=== PATIENT | male | born 1965 | race Caucasian/White ===

== ENCOUNTER 2021-06-10 08:21 | Emergency (ER) | payer OTHER ==
[~2021-06-10 08:21] MED LIST: KEPPRA500 MG PO
[2021-06-10 09:36] LABS: BASOPHIL 0.9 % (0-2); EOSINOPHIL 1.3 % (0-5); HGB 9.9 g/dl (13.2-18.0); MCH 30.9 pg (25.0-31.0); MCV 93.8 fL (78.0-100.0); MONOCYTE 11.2 % (0-12); MPV 10.3 fL (6.0-9.5); NEUTROPHIL 68.4 % (41-80); NRBC 0; PLT 111 K/uL (150-400); WBC 4.6 K/uL (4.0-10.5)
[2021-06-10 09:41] LABS: INR 1.79 (0.9-1.2); PTT 39.4 SECONDS (24.4-34.7)
[2021-06-10 09:50] LABS: BILIRUBIN - TOTAL 4.4 mg/dL (0.2-1.0); BUN/CREAT RATIO (CALC) 14.5 RATIO; CREATININE 0.69 mg/dL (0.67-1.17); GLOBULIN (CALCULATION) 2.7 g/dL; MAGNESIUM 1.5 mg/dL (1.8-2.4); POTASSIUM 3.4 mmol/L (3.5-5.1); TOTAL PROTEIN 4.7 g/dL (6.4-8.2)
[2021-06-10] MEDS ORDERED: LASIX20 MG PO (15:02)
[2021-06-10] MEDS ORDERED: ALDACTONE25 M1 PO (15:02)
[2021-06-11] MEDS ORDERED: MACROBID100 MG PO (12:43)
[2021-06-11] MEDS ORDERED: OXY-IR 5MG5 MG PO (12:43)
[2021-06-11] MEDS ORDERED: ONDANSETRON ODT4 MG PO (12:43)
== END 2021-06-10 15:20 | disposition home or self-care (01) ==
LOC: FER 08:21
PROVIDERS: Emergency Medicine
DX: R07.89 Other chest pain (principal); R18.8 Other ascites; F17.210 Nicotine dependence, cigarettes, uncomplicated
CPT/HCPCS: 36415; 80053; 83690; 83735; 84484; 85025; 85610; 85730; 93005; 96374; 96375; 96376; J1170; J2060; J2405; P9046

== ENCOUNTER 2021-06-11 08:51 | Emergency (ER) | payer OTHER ==
[~2021-06-11 08:51] MED LIST changes: +ALDACTONE25 M1 PO; +LASIX20 MG PO
[2021-06-11 10:43] LABS: BILIRUBIN 2+ mg/dL (NEGATIVE); BLOOD 3+ Ery/uL (NEGATIVE); CLARITY CLEAR (CLEAR); COLOR ORANGE (YELLOW); GLUCOSE (U) TRACE mg/dL (NORMAL); LEUKOCYTES TRACE Leu/uL (NEGATIVE); NITRITE POSITIVE (NEGATIVE); PROTEIN 2+ mg/dL (NEGATIVE); SPECIFIC GRAVITY >=1.030 (1.001-1.030); pH 5.5 (5.0-9.0)
[2021-06-11 10:47] LABS: BASOPHIL 0.7 % (0-2); EOSINOPHIL 1.5 % (0-5); HCT 31.2 % (42.0-52.0); HGB 10.2 g/dl (13.2-18.0); LYMPHOCYTE 18.1 % (15-48); MCHC 32.7 g/dL (32.0-36.0); MCV 94.8 fL (78.0-100.0); MONOCYTE 11.6 % (0-12); MPV 10.5 fL (6.0-9.5); NEUTROPHIL 67.7 % (41-80); NRBC 0; PLT 119 K/uL (150-400); RBC 3.29 M/uL (4.70-6.00); RDW 16.5 % (11.5-14.0); WBC 5.4 K/uL (4.0-10.5)
[2021-06-11 10:54] LABS: BACTERIA 3+; MUCOUS MODERATE
[2021-06-11 10:56] LABS: ALBUMIN 2.5 g/dL (3.4-5.0); BILIRUBIN - TOTAL 5.2 mg/dL (0.2-1.0); BUN/CREAT RATIO (CALC) 11.4 RATIO; CREATININE 1.05 mg/dL (0.67-1.17); GLOBULIN (CALCULATION) 2.8 g/dL; POTASSIUM 3.8 mmol/L (3.5-5.1); TOTAL PROTEIN 5.3 g/dL (6.4-8.2)
[2021-06-11] MEDS ORDERED: OXY-IR 5MG5 MG PO (12:43)
[2021-06-11] MEDS ORDERED: ONDANSETRON ODT4 MG PO (12:43)
[2021-06-11] MEDS ORDERED: MACROBID100 MG PO (12:43)
[2021-06-12] MEDS ORDERED: NORCO 5-325 TA1 EACH PO (11:17)
== END 2021-06-11 13:42 | disposition home or self-care (01) ==
LOC: FER 08:51
PROVIDERS: Emergency Medicine
DX: N30.90 Cystitis, unspecified without hematuria (principal); F17.200 Nicotine dependence, unspecified, uncomplicated; Z88.8 Allergy status to other drugs, medicaments and biological substances
CPT/HCPCS: 36415; 80053; 81001; 82150; 83690; 85025; J0696; J1170; J2270; J2405

== ENCOUNTER 2021-06-12 08:17 | Emergency (ER) | payer OTHER ==
[~2021-06-12 08:17] MED LIST changes: +MACROBID100 MG PO; +ONDANSETRON ODT4 MG PO; +OXY-IR 5MG5 MG PO
[2021-06-12 10:54] LABS: BASOPHIL 0.5 % (0-2); EOSINOPHIL 0.7 % (0-5); HCT 27.7 % (42.0-52.0); HGB 9.3 g/dl (13.2-18.0); LYMPHOCYTE 12.1 % (15-48); MCH 31.7 pg (25.0-31.0); MCHC 33.6 g/dL (32.0-36.0); MCV 94.5 fL (78.0-100.0); MONOCYTE 10.7 % (0-12); MPV 10.4 fL (6.0-9.5); NEUTROPHIL 75.7 % (41-80); NRBC 0; PLT 108 K/uL (150-400); RBC 2.93 M/uL (4.70-6.00); RDW 16.1 % (11.5-14.0)
[2021-06-12 10:55] LABS: LACTIC ACID 2.3 mmol/L (0.4-1.9)
[2021-06-12 11:02] LABS: INR 1.84 (0.9-1.2); PROTHROMBIN TIME 20.4 SECONDS (11.8-13.4)
[2021-06-12 11:07] LABS: ALBUMIN 2.2 g/dL (3.4-5.0); ALKALINE PHOSHATASE 73 U/L (46-116); ALT 17 U/L (16-63); AST 26 U/L (15-37); BILIRUBIN - TOTAL 4.5 mg/dL (0.2-1.0); BUN 14 mg/dL (7-18); BUN/CREAT RATIO (CALC) 12.2 RATIO; CHLORIDE 104 mmol/L (98-107); CO2 (BICARBONATE) 27 mmol/L (21-32); CREATININE 1.15 mg/dL (0.67-1.17); GLOBULIN (CALCULATION) 2.5 g/dL; GLUCOSE 112 mg/dL (74-106); LIPASE 55 U/L (73-393); POTASSIUM 3.5 mmol/L (3.5-5.1); TOTAL PROTEIN 4.7 g/dL (6.4-8.2)
[2021-06-12 11:09] LABS: PTT 43.4 SECONDS (24.4-34.7)
[2021-06-12] MEDS ORDERED: NORCO 5-325 TA1 EACH PO (11:17)
== END 2021-06-12 12:59 | disposition home or self-care (01) ==
LOC: FER 08:17
PROVIDERS: Emergency Medicine
DX: N13.6 Pyonephrosis (principal); K74.60 Unspecified cirrhosis of liver; Z88.8 Allergy status to other drugs, medicaments and biological substances
CPT/HCPCS: 36415; 80053; 82140; 83605; 83690; 84484; 85025; 85610; 85730; 87040; G0480; J0696; J1170

== ENCOUNTER 2022-07-11 17:14 | Emergency (ER) | payer OTHER ==
[~2022-07-11 17:14] MED LIST changes: +NORCO 5-325 TA1 EACH PO
[2022-07-11 18:42] LABS: BASOPHIL 0.9 % (0-2); EOSINOPHIL 1.6 % (0-5); HCT 38.6 % (42.0-52.0); HGB 12.7 g/dl (13.2-18.0); LYMPHOCYTE 21.7 % (15-48); MCH 28.5 pg (25.0-31.0); MCHC 32.9 g/dL (32.0-36.0); MCV 86.7 fL (78.0-100.0); MONOCYTE 9.3 % (0-12); MPV 10.5 fL (6.0-9.5); NEUTROPHIL 66.3 % (41-80); NRBC 0; PLT 115 K/uL (150-400); RBC 4.45 M/uL (4.70-6.00); RDW 14.5 % (11.5-14.0); WBC 4.4 K/uL (4.0-10.5)
[2022-07-11 18:47] LABS: INR 1.26 (0.9-1.2); PROTHROMBIN TIME 15.4 SECONDS (11.9-13.9)
[2022-07-11 18:59] LABS: ALBUMIN 3.6 g/dL (3.4-5.0); BILIRUBIN - TOTAL 2.1 mg/dL (0.2-1.0); BUN/CREAT RATIO (CALC) 20.3 RATIO; CREATININE 0.79 mg/dL (0.67-1.17); POTASSIUM 3.5 mmol/L (3.5-5.1); TOTAL PROTEIN 6.6 g/dL (6.4-8.2)
[2022-07-11 19:38] LABS: BILIRUBIN NEGATIVE (NEGATIVE); BLOOD 3+ Ery/uL (NEGATIVE); CLARITY CLEAR (CLEAR); COLOR YELLOW (YELLOW); GLUCOSE (U) NORMAL (NORMAL); LEUKOCYTES NEGATIVE Leu/uL (NEGATIVE); NITRITE NEGATIVE (NEGATIVE); PROTEIN NEGATIVE (NEGATIVE); SPECIFIC GRAVITY 1.015 (1.001-1.030); UROBILINOGEN 0.2 mg/dL (0.2-1.0)
[2022-07-11 19:46] LABS: BACTERIA TRACE; URINARY WBC RARE
[2022-07-11] MEDS ORDERED: NORCO 5-325 TA1 EACH PO (21:42)
== END 2022-07-11 22:26 | disposition home or self-care (01) ==
LOC: FER 17:14
PROVIDERS: Emergency Medicine
DX: K74.60 Unspecified cirrhosis of liver (principal); R18.8 Other ascites
CPT/HCPCS: 36415; 80053; 81001; 82140; 82150; 83690; 85025; 85610; J1940; J2270